=== PATIENT | female | born 1985 | race Caucasian/White ===

== ENCOUNTER 2025-06-01 00:55 | Day surgery (SDC) | payer OTHER, SELFPAY ==
--- NOTE | 2025-05-19 14:59 | SUR.PREOP ---
[facility] has started construction of its new state of the art ER which will open Spring 2026. With this, we anticipate parking may be a challenge for some our surgical patients and families. Parking spaces are limited but are available for all Surgical, obstetrics, and ER patients sharing this lot. If you arrive and find you are having a hard time finding a parking space, please note that we understand the challenges, please drive around the hospital and park near Hospital Entrance 1. When you enter this entrance, you can ask a volunteer to direct or take you back to the surgical waiting area to check in. We appreciate everyone?s understanding of these expected challenges while we build for your future. Report to the Outpatient Waiting Room, entrance under the green pavilion located off [address], at time _6am___ on date __06/01/25___. Planned Procedure Time: _730am___.? Time changes happen often and if your time is changed the preop area will call you the afternoon before. - You and your visitor will be asked to self-screen and do not enter if you have any COVID symptoms. Please call surgeon if you need to reschedule. - A mask is optional within the hospital at this time. Patients may have clear liquids (water, carbonated beverages, clear teas, apple juice) until 3 hours prior to surgery with a maximum of 20 ounces. - No food from midnight until time of surgery and no smoking, or chewing tobacco (or any form of nicotine). No chewing gum, candy or mints. Take only the following medications with a SIP of water on the morning of surgery: _none DO NOT STOP ANY OF YOUR OTHER PRESCRIPTION MEDICATIONS PRIOR TO SURGERY EXCEPT THE FOLLOWING Hold all vitamins and supplements for 3 days per anesthesiologist. Medications to discontinue per physician none____ Date to take last dose___n/a Please no make-up, nail belarusian, hairspray, perfume, deodorant, or body powder the day of surgery.? No jewelry (including any body piercings) or valuables the day of surgery, leave them at home.? Please take a shower or bath the night before, or the morning of, surgery with an antibacterial soap.? Wear comfortable, loose fitting clothing.? - Jewelry must be removed prior to entering the operating room.? Rings and piercings that are not removed may be cut off. - The hospital will not accept responsibility for valuables.? - Please leave all valuables, including medications, at home the day of surgery. If you are going home after surgery, a licensed ambulette driver must drive you home.? - NO public transportation without another adult if you receive anesthesia. - We recommend that an adult stay with you for 24 hours following discharge. - We also recommend that you do not drive, make important decision, drink alcoholic beverages, or take any drugs that were not prescribed by your health care provider for at least 24 hours after your discharge time. Follow any additional instructions given to you from your surgeon. Telephone instructions given to ___Sherry___and asked if any additional questions and then verbalized understanding. Patient advised to call surgeon office or pre surgery nurse liaison [phone] if any additional questions.
[2025-05-19 15:01] VITALS: BMI 28.9
[2025-06-01] VITALS (8 sets, daily range): BP systolic 101–126; BP diastolic 54–68; PULSE 63–84; RESP 8–16; TEMP 36.2–37.1; O2SAT 99–100
[2025-06-01 06:27] LABS: Pregnancy On Board Control Positive
[2025-06-01] MEDS: LACTATED RINGERS 1,000 ML 30 ML IV CONT ×2 (06:30→10:43)
--- NOTE | 2025-06-01 06:47 | P.PNAN_ITS ---
Anes - Initial Pre Proc Eval Procedure: Operation Date: 06/01/25 07:30 Proposed Procedures p Bilateral Breast Implant Exchange, - Jayson Vargas MD s Bilateral Breast Mastopexy with GalaFlex - Jayson Vargas MD Date/Time: 06/01/25 06:47 Surgeon: Jayson Vargas MD Pre Op Diagnosis: hx of breast augmentation, breast ptsois Patient Data Age: 39 Gender: F Height: 1.52 m Weight: 67.2 kg Allergies Allergy/AdvReac Type Severity Reaction Status Date / Time No Known Allergies Allergy Verified 05/19/25 15:00 Home Medications ?Medication ?Instructions ?Recorded ?Confirmed ?Type No Home Medications 05/19/25 05/19/25 H istory Laboratory Tests 06/01/25 06:05 Urine Test Negative Cotinine Negative Patient hx anesthesia problems: post op nausea/vomiting Family hx anesthesia problems: none Results Review: All pre-operative results and documents have been reviewed as part of the pre- operative evaluation. [facility] Past Medical History Medical History (Updated 06/01/25 @ 06:57 by Rudy Gordillo DO) Anxiety STEFAN (obstructive sleep apnea) Social History Social History Smoking status: Never smoker Living arrangements: with family Spiritual care concerns: No Anes - Eval Final PreProcedure Day of Procedure 06/01/25 06:47 Patient weight: overweight Heart: regular rate and rhythm Lungs: clear to auscultation Airway: Mallampati scale class II Neurological: alert and oriented Last oral intake: >/= 8 hours ASA classification: II Emergent: no Anesthetic plan: proceed Anesthesia type and monitoring: general LMA and standard monitoring Results Review: All pre-operative results and documents have been reviewed as part of the pre- operative evaluation. Informed Consent: The patient's anesthetic plan and its attendant risks and benefits were discussed with the patient/family/POA. Questions were solicited and answers provided to the satisfaction of the patient/family/POA.
--- NOTE | 2025-06-01 07:05 | WPDHPUPDATE1 ---
History and Physical Update Update Date/Time: 06/01/25 07:05 History and Physical has been reviewed, including an updated exam of the patient. There are NO changes in the patient's condition. Risks, benefits, and alternatives have been discussed and questions answered. Patient agrees to proceed with procedure.
[2025-06-01] MEDS: TRANEXAMIC ACID 1,000MG/ISO100 1,000 MG/100 ML BAG 200 MG IVPB (07:15)
[2025-06-01] MEDS: SCOPOLAMINE 1 MG PATCH 1 PATCH TRANSDERM (07:18)
--- NOTE | 2025-06-01 07:21 | W.PM.PROC2 ---
Procedure Note - Detailed Date of Procedure 06/01/25 Pre-op Diagnosis hx of breast augmentation, breast ptsois Post-op Diagnosis Same Procedure Performed 1. Bilateral breast implant exchange 2. Bilateral revision mastopexy with Galaflex Surgeon Jayson Vargas MD Anesthesia General Indications She has a history of augmentation mastopexy 2005 and subsequent exchange in 2016. After the procedures she had persistent asymmetry and synmastia which has been bothersome for many years. She also had fat grafting for pectus excavatum in 2016. She would like to proceed with the procedure below in an effort to improve the appearance. I was very honest and upfront about the significant complexity of her concerns and failure rate of the procedure she is undergoing. This was outlined clearly and she was able to repeat it back as I wanted to make sure she was very clear about the challenges associated with attempted improvement of this. Findings Previous implants: Allergan Natrelle Right SRF-450 Intact Left SRF-385 intact New implants: Allergan Natrelle Inspira Cohesive Right: SCF-450 SN [id number] Left: SCF-385 SN [id number] Description of Procedure She is here today for the above. Previously and again today the risks, benefits, alternatives were discussed in extensive detail. I wanted her to be very realistic about the risks involved as well as expectations. We discussed aftercare and what to monitor for. Made sure answered all of her questions to her satisfaction today and consent was obtained. Marked in the preoperative holding area with their verification. I did point out her current areola positions and other findings to clearly illustrate the limitations and complexity of the procedure. The patient was taken to the operating room placed supine on the operating table. Anesthesia was provided by anesthesiology. A surgical time-out was taken. She was prepped and draped in a standard sterile fashion. Tumescent was utilized laterally to provide field block Tegaderm nipple Lucas were placed. A 15 blade used to make an incision just superior to the inframammary fold leaving a cusp of de-epithelized tissue at the t junction. Dissection was continued until the chest wall as identified. I continued dissection until the capsule was identified and entered. Implants removed. I copiously irrigated with 3 liters of saline solution on TUR tubing. Bilateral breast capsules extended beyond the midline and were seperate; however, overlappying. Lateral / superior cappsulotomy completed. Medial bilateral I did popcorn cappsulorraphy and created a capsule edge at the planned new medial breast borders. Externally I used 3-0 Nylon to create a hemostatic net along the midline and secure the central tissue along the area of pectus exuvatum. Internally along the medial border I used 2-0 PDO strattafix to secure the pocket. I then copiously irrigated with saline solution and verified a strict hemostasis. Next the use a triple antibiotic and Betadine containing solution to irrigate the pocket. I washed my gloves with the triple antibiotic and Betadine solution. We washed the implant immediately upon opening it with this solution and only opened it when we needed it. I used implant funnel and no-touch technique. The implant was introduced into the pocket using the funnel. Galaflex was soaking on the back table and I introduced into the pocked along that medial edge bilateral. Having verified positioning this was closed using 2-0 PDS. I tailor tacked the breast into position. Placed her in a sitting position. Verified the nipple-areolar location based on preoperative planning as well as intraoperative observations and measurements in full agreement. Suction lipectomy was completed laterally with a 4mm leonora cannula. This was based on preoperative planning, intraoperative observation, and rolling pinch which was in full agreement. She was placed supine. I de-epithelialized the pedicle. I then removed the inferior central portion of the breast need making sure the implant was well protected. I elevated medial and lateral tissue flaps as well for planned closure. Secured the IMF with 2-0 PDS. I closed along the IMF with 2-0 PDS. Along the vertical with 2-0 PDS. I closed around the areola and the vertical incision with 3-0 Monocryl. 3-0 Stratafix along the IMF. I finally closed everything with running subcuticular 4-0 Monocryl. Steri strips placed along areola / IMF and brijjits along the vertical. Fluffs and surgical bra were placed. Estimated Blood Loss 40 Drains No Packing No Pathology None sent Complications No immediate complications Condition Stable Disposition PACU
[2025-06-01] MEDS: ceFAZolin 2 GM in SODIUM CHLORIDE 0.9% IV 50 ML 100 ML IVPB (07:29)
[2025-06-01] MEDS: LACTATED RINGERS IRRIG 1,000 ML, LIDOCAINE 1% LOCAL INJ 50 ML, EPINEPHrine HCL INJ 1 MG... INFILTRATE (07:29)
[2025-06-01] MEDS: NACL 0.9% IRRIG POUR BOTTLE 900 ML, GENTAMICIN SULFATE INJ 160 MG, ceFAZolin 2 GM, POVI... IRRIGATION (07:29)
[2025-06-01] MEDS: ONDANSETRON INJ 4 MG/2 ML VIAL IV PUSH (11:45)
[2025-06-01] MEDS: oxyCODONE HCL (*CRX) 5 MG TAB IR PO (11:54)
--- OUTSIDE RECORDS SUMMARY | 2025-06-01 16:02 | XMS_ITS | Clinical Summary ---
Author Organization [facility] Address [address] [place] [id number] Care Team Providers Care Development Mechanic Name Role Phone Marcie Sherman RAE Primary Care Provider [phone] Allergies No known active allergies Medications No known medications Active Problems Problem Noted Date Diagnosed Date Somnolence, daytime 09/29/2024 Snoring 09/29/2024 Obesity 09/29/2024 Anxiety 09/29/2024 Allergic rhinitis due to food 10/15/2023 Seasonal allergic rhinitis due to pollen 024 Seasonal allergies 10/15/2023 Major depressive disorder wi th single episode, in partial remission 10/15/2023 Family history of early CAD 10/15/2023 Prediabetes 10/15/2023 Vitamin D deficiency 10/15/2023 Low vitamin B12 level 10/15/2023 STEFAN on CPAP 10/15/2023 Encounters Date Type Department Care Team Description 04/14/2025 10:34 AM CDT - 04/14/2025 11:59 PM CDT Hospital Encounter [facility] - Ultrasound [address] [place] [address] Raheel Vargas MD Discharge Disposition: Home or Self Care (Routine Discharge) 04/14/2025 Travel 04/12/2025 10:02 AM CDT - 04/12/2025 11:59 PM CDT Hospital Encounter [address] [place] [id number] Naheed Sylvester MD Discharge Disposition: Home or Self Care (Routine Discharge) 04/12/2025 Travel 04/12/2025 Telephone [facility] [address] [place] [address] Marcie Sherman NP Appointment Request from Last 3 Months Immunizations Immunization Administration Dates Next Due Influenza Adult (Generic) 07/15/2017 Social History Tobacco Use Types Packs/Day Years Used Date Smoking Tobacco: Never Smokeless Tobacco: Never Tobacco Cessation:Counseling Given: No Comments:Non smoker Alcohol Use Standard Drinks/Week Comments Not Currently 0 (1 standard drink = 0.6 oz pur e alcohol) PHQ-2 Answer Date Recorded Patient Health Questionnaire-2 Score 0 09/29/2024 Comments No Sex and Gender Information Value Date Recorded Sex Assigned at Female 11/04/2024 1:14 PM CDT Legal Sex Female 9:15 AM CDT Gender Identity Not on file Sexual Orientation Not on file Last Filed Vital Signs Vital Sign Reading Time Taken Comments Blood Pressure 97/64 12/29/2024 9:33 AM CDT Pulse 76 12/29/2024 9:33 AM CDT Temperature 36.5 C (97.7 F) 12/29/2024 9:33 AM CDT Respiratory Rate 18 12/29/2024 9:33 AM CDT Oxygen Saturation 99% 12/29/2024 9:33 AM CDT Inhaled Oxygen Concentration - - Weight 66.3 kg (146 lb 2 oz) 12/29/2024 9:33 AM CDT Height 151.1 cm (4' 11.5) 12/29/2024 9:33 AM CD T Body Mass Index 29.02 12/29/2024 9:33 AM CDT Plan of Treatment Health Maintenance Due Date Last Done Comments Cervical Cancer Screening Pa p Smear (Age 30 to 64) Every 3 Years 1985 Hepatitis C 10/13/2003 DTaP, Tdap and Td Vaccines ( 1 - Tdap) 2004 Hepatitis B Vaccines (1 of 3 - 19+ 3-dose series) 2004 HPV Vaccines (1 - 3-dose SCD M series) 2012 Cervical Cancer Screening Pa p with HPV Testing (Age 30 to 64) Every 5 Years 10/13/2015 Cervical Cancer Screening with HPV 10/13/2015 Annual Physical 10/14/2024 10/15/2023 COVID-19 Vaccine (2024-2 6 season) 2025 Influenza Adult (#1) 2025 07/15/2017 PHQ-2 (Physician [place]) Completed 09/29/2024 Hepatitis A Vaccines Aged Out No long er eligible based on patient's age to complete this topic Meningococcal B Vaccine Aged Out No l onger eligible based on patient's age to complete this topic Meningococcal Vaccine Aged Out No reymundo lisa eligible based on patient's age to complete this topic Pneumococcal Vaccine: Pediat rics (0 to 5 Years) and At-Risk Patients (6 to 49 Years) Aged Out No longer eligi ble based on patient's age to complete this topic RSV Immunizations Under 20 Months Aged Out No longer eligible based on patient's age to complete this topic Procedures Procedure Name Priority Date/Time Associated Diagnosis Comments US BREAST RT Data Stream CBOT Routine 04/14/2025 11:20 AM CDT Abnormal mammogram MG SCREENING IMPLANT W LALITO BLANQUITA DIGI Routine 04/12/2025 10:39 AM CDT Screening mammogram for breast cancer from Last 3 Months Results * US BREAST RT Data Stream CBOT (04/14/2025 11:20 AM CDT) Anatomical Region Laterality Modality Breast Right Ultrasound 04/14/2025 3:10 PM CDT Impressions 04/14/2025 3:13 PM CDT IMPRESSION: Benign findings right breast. Recommend continued annual screening mammography. Scattered cysts in the right breast upper outer quadrant as described. Recommendation: 1: Routine Screening Bilateral in 1 year Return for Routine Follow-Up: Yes Assessment: ACR BI-RADS 2 - BENIGN FINDING(S) Results were explained to the patient at the time of ultrasound 04/14/2025. Ordered By: RAHEEL VARGAS Interpreted By: Nick Ortiz MD, 04/14/2025 3:10 PM Narrative 04/14/2025 3:13 PM CDT [place] [id number] Examination: Ultrasound breast Limited right Exam Date/Time: 04/14/2025 11:06 AM Clinical history: Patient had screening mammogram which showed a partially obscured potential nodular density in the right breast outer upper quadrant. Comparison: Reference made to the mammogram from 04/12/2025. Patient had remote ultrasound of the right breast in 2014. Technique:Ultrasound of the right breast performed evaluating the breast upper outer quadrant. Findings: At 9:00 5 cm away from the nipple there is a hypoechoic nodular structure in the range of 4 x 7 x 2 mm compatible with a cyst. There is no shadowing or increased vascularity. At 9:00 2 cm away from the nipple there is another well-defined hypoechoic structure in the range of 5 mm consistent with another cyst. At 11:00 5 cm away from the nipple there is another cyst which measures 7 x 4 mm. At 12:00 there is a microcyst. Given the appearances the assessment is benign. Recommend one-year irregular screening mammogram. us Raheel Vargas MD ULTRASOUND Final Result * MG SCREENING IMPLANT W LALITO BLANQUITA DIGI (04/12/2025 10:39 AM CDT) Anatomical Region Laterality Modality Breast Bilateral Mammography 04/12/2025 11:2 3 AM CDT Impressions 04/12/2025 11:25 AM CDT IMPRESSION: Partially obscured round potential nodular densities in the right breast upper outer quadrant. Recommendation: 1. Ultrasound, Right Assessment: ACR BI-RADS 0 - INCOMPLETE: NEEDS ADDITIONAL IMAGING EVALUATION Ordered By: RHAEEL VARGAS Interpreted By: Nick Ortiz MD, 04/12/2025 11:23 AM Narrative 04/12/2025 11:25 AM CDT [facility] [address] [address] Examination: Screening bilateral mammogram Exam Date: 04/12/2025 10:03 AM Clinical history: Screening Comparison: November 2006 Technique: Digital screening mammography of both breasts was performed. Breast tomosynthesis acquisitions were obtained and reviewed. Bilateral implant displaced views are also performed. This study was read with the assistance of a computer-aided detection system. Tissue density: The breasts are heterogeneously dense, which may obscure small masses. Findings: No suspicious masses, malignant appearing calcifications, skin thickening or other abnormalities are present. Benign findings with computer-assisted software. Bilateral breast implants. In the right breast upper outer aspect there are partially obscured potential nodular tissue asymmetries. Recommend ultrasound evaluating the right breast upper outer quadrant. There are bilateral scattered lymph nodes in the axillary tail. us Raheel Vargas MD MAMMO Final Result from Last 3 Months Care Teams Development Mechanic Relationship Specialty Start Date End Date Marcie Sherman NP [address] [place] [address] PCP - General 04/10/25
== END 2025-06-01 12:50 | disposition home or self-care (01) ==
PROVIDERS: Visit Provider Surgery Plastic and Reconstructive Surgery
PROC: (CPT 19370; principal; 2025-06-01 07:30)
PROC: (CPT 19316; 2025-06-01 07:30)
DX: Z41.1 Encounter for cosmetic surgery (principal); N64.81 Ptosis of breast; N64.89 Other specified disorders of breast
CPT/HCPCS: 19370; 19325; 19316; 15777 ×2; 80307; 81025; J0690; A9270; J0166; J1100; J1171; J1200; J1580; J2003; J2250; J2405; J2704; J3010; J3290; J7120